=== PATIENT | male | born 1975 | race Two or more races ===

== ENCOUNTER 2021-03-27 16:35 | Emergency (ER) | payer SELFPAY ==
[~2021-03-27] VITALS: Ht 182.9 cm; Wt 113.5 kg
[2021-03-27 16:50] VITALS: BP 119/63
== END 2021-03-27 17:14 ==
LOC: ER 16:35
DX: F19.90 Other psychoactive substance use, unspecified, uncomplicated (principal); F14.10 Cocaine abuse, uncomplicated; F15.10 Other stimulant abuse, uncomplicated; F17.290 Nicotine dependence, other tobacco product, uncomplicated; F16.10 Hallucinogen abuse, uncomplicated; Z13.9 Encounter for screening, unspecified; Z98.890 Other specified postprocedural states
CPT/HCPCS: 99283; 99406